=== PATIENT | male | born 1965 | race Hispanic/Latino ===

== ENCOUNTER 2021-08-08 12:52 | Outpatient (CLI) | payer BC, SELFPAY ==
--- NOTE | 2021-08-09 09:33 | WPDNEUROLOGY ---
Neurology EEG Report General Information Date of Study: 08/08/21 TEST eeg DIAGNOSIS memory impairment
--- NOTE | 2021-08-09 09:35 | WPDNEUROLOGY ---
Neurology EEG Report General Information Date of Study: 08/08/21 TEST eeg DIAGNOSIS Memory impairment CONDITION OF RECORDING awake and drowsy with constant eye movements noted throughout the whole tracing EEG NUMBER [id number] CLINICAL HISTORY patient reported he started noticing a decline in memory and brain fog for about the last 7 to 8 months EEG DESCRIPTION basic resting occipital frequency consists of large amount of well-organized low to medium voltage 8 to 10 hertz per 2nd alpha admixed with minimal amount of low-voltage 15 to 18 hertz per 2nd beta. Low-voltage beta activity seen diffusely admixed with waxing and waning posterior alpha rhythm. Photic stimulation produced normal drive. Hyperventilation not done. Non paroxysmal. Nonfocal. Nonlateralizing. IMPRESSION Normal record
== END 2021-08-08 12:53 | disposition home or self-care (01) ==
PROVIDERS: PCP Internal Medicine; Visit Provider Psychiatry & Neurology Neurology
DX: R41.3 Other amnesia (principal)
CPT/HCPCS: 95816